=== PATIENT | female | born 1970 | race Caucasian/White ===

== ENCOUNTER → 2021-02-13 14:49 | Outpatient (CLI) | payer BC, SELFPAY ==
--- NOTE | 2021-02-13 14:53 | US_ITS ---
PROCEDURE INFORMATION: Exam: US Right Breast, Complete Exam date and time: 02/13/2021 2:53 PM Age: 50 years old Clinical indication: Screening after trauma TECHNIQUE: Imaging protocol: Complete ultrasound of all four quadrants of the Right breast and the retroareolar regions, including ultrasound of the axilla when performed. COMPARISON: MG MM DIG SCREENING MAMM BI W/CAD 02/13/2021 2:56 PM FINDINGS: Breast: Sonographic images of the right breast including the retroareolar region, all 4 quadrants and the axilla do not demonstrate any solid or cystic masses. No architectural distortion or acoustical shadowing. No skin thickening or axillary adenopathy. IMPRESSION: No sonographic evidence of malignancy. Annual mammographic screening is recommended unless otherwise clinically indicated. ASSESSMENT: BI-RADS Category 1: Negative
--- NOTE | 2021-02-13 14:53 | US_ITS ---
PROCEDURE INFORMATION: Exam: US Left Breast, Complete Exam date and time: 02/13/2021 2:53 PM Age: 50 years old Clinical indication: Screening after trauma TECHNIQUE: Imaging protocol: Complete ultrasound of all four quadrants of the Left breast and the retroareolar regions, including ultrasound of the axilla when performed. COMPARISON: MG MM DIG SCREENING MAMM BI W/CAD 02/13/2021 2:56 PM FINDINGS: Breast: Sonographic images of the left breast including the retroareolar region, all 4 quadrants and the axilla do not demonstrate any solid or cystic masses. Cursors were placed over normal retroareolar ducts. No architectural distortion or acoustical shadowing. No skin thickening or axillary adenopathy. IMPRESSION: No sonographic evidence of malignancy. Annual mammographic screening is recommended unless otherwise clinically indicated. ASSESSMENT: BI-RADS Category 1: Negative
--- NOTE | 2021-02-13 14:53 | MM_ITS ---
PROCEDURE INFORMATION: Exam: MG Bilateral Screening 3D Mammography Exam date and time: 02/13/2021 2:53 PM Age: 50 years old Clinical indication: Screening mammogram TECHNIQUE: Imaging protocol: Bilateral Screening tomosynthesis and 2D mammography including computer-aided detection (CAD) when performed. COMPARISON: MG MM MAMMO DIGITAL DIAGNOSTIC W CAD BILAT 01/16/2017 9:00 AM FINDINGS: MAMMOGRAPHY: Breast composition: There are scattered areas of fibroglandular density. Mass: None. Architectural distortion: No new or suspicious architectural distortion. Calcifications: No new or suspicious calcifications are present Asymmetric density: No new or suspicious asymmetric density is present Skin thickening: None. Axillary adenopathy: None. IMPRESSION: No mammographic evidence of malignancy. Recommend annual screening mammography unless otherwise clinically indicated. ASSESSMENT: BI-RADS category 1: Negative
== END ==
PROVIDERS: PCP Family Medicine; Visit Provider Family Medicine
DX: Z12.31 Encounter for screening mammogram for malignant neoplasm of breast (principal); Z87.828 Personal history of other (healed) physical injury and trauma
CPT/HCPCS: 76641; 77063; 77067

== ENCOUNTER 2021-06-06 14:00 | Inpatient (IN) | payer BC, SELFPAY ==
[2021-06-06] VITALS (7 sets, daily range): BP systolic 115–130; BP diastolic 53–81; PULSE 68–83; RESP 15–20; TEMP 36.6–38.2; O2SAT 93–98; BMI 33.3; BMI 32.3; BMI 33.1
--- NOTE | 2021-06-06 15:53 | PC.NURSE ---
notified Dr. Christopher of consult on pt per ER MD request
--- NOTE | 2021-06-06 16:03 | PC.NURSE ---
Dr Christopher at bedside
--- NOTE | 2021-06-06 16:08 | PC.NURSE ---
accompanied dr. christopher to BS to examine pt. Dr. Christopher stated to pt that she needs to be admitted for IV antibiotics and he will plan to take to OR in the morning for I&D. Dr. Christopher notified ER MD of his plan.
[2021-06-06 16:10] LABS: Microscopic, Urine URINE MICROSCOPIC (MICROSCOPIC)
--- NOTE | 2021-06-06 16:14 | HMH.GSCON ---
*Admission Date: 06/06/21 *Reason for consult:: Perirectal abscess *History of present illness: Patient is a 50-year-old female from [facility]. She has a history of previous perirectal abscess on the right which was managed nonoperatively with antibiotics beginning June 2020. She Had been in her usual state of health until she had recurrent symptoms. She describes swelling and tenderness in the perirectal location. This started about 6 or 7 days ago. She states that she has been treated with outpatient oral antibiotics. However, her symptoms have persisted. She followed up with her primary care provider today and had ongoing symptoms. She was sent for gynecology examination and gynecology felt that this was more of a perirectal abscess apparently. She was sent to the emergency department. Surgery was asked to evaluate the patient in the emergency department. She denies any rectal bleeding. Denies any drainage from this area. Review of Systems - Review of Systems Review of systems:: pertinent systems reviewed and negative unless documented below [facility] History I have reviewed the patient's past medical history: Yes Medical History: Reports:: Hypertension *Have you ever received a pneumonia vaccine?: No *Have you received a flu vaccine this season?: No Other Medical History: Reports: Other Other Surgeries: Yes: Colonoscopy Fractures: Yes - *Social History Smoking Status: Never smoker Alcohol Intake: never Substance Use Type: denies use *Occupational Status:: employed *Travel in the last 8 weeks: None Family Hx:: No significant family history Meds Home Medications Medication Instructions Recorded Confirmed Type Losartan/Hydrochlorothiazide 1 tab PO DAILY 06/06/21 06/06/21 History [Losartan-Hctz 100-12.5 mg Tab] Sulfamethoxazole/Trimethoprim 1 tab PO BID 06/06/21 06/06/21 History [Sulfamethoxazole-Tmp Ds Tablet*] Allergies Allergy/AdvReac Type Severity Reaction Status Date / Time No Known Allergies Allergy Verified 06/06/21 10:17 Exam I & O for Last 24 hours: Intake & Output 06/04/21 06/05/21 06/06/21 06/07/21 11:59 11:59 11:59 11:59 Weight 213 lb - Constitutional no acute distress - *Routine HEENT Exam Head: Present: normocephalic - *Routine Respiratory Exam Absent: accessory muscle use - *Routine Cardiovascular Exam Present: RRR - *Routine Rectal Exam Comments: In the right posterior lateral perirectal location there is some significant induration and edema of the soft tissues. There is some erythema. Centrally in the right posterior lateral location there is an area of central fluctuance without drainage. This is tender. Results - Labs 06/06/21 16:40 06/06/21 16:40 Assessment and Plan - Assessment and plan all Dx Assessment and Plan for all problems:: Patient has evidence of perirectal abscess with surrounding soft tissue infection. I feel the best plan of action would be admission for intravenous antibiotics given failure of outpatient oral antibiotics. Plan for incision and drainage tomorrow morning under anesthesia. Pending the operative findings could require continued inpatient stay for ongoing antibiotics, pain control, and dressing changes. Possible she could develop a fistula given the nature of her condition with recurrent perirectal abscess. At this time I recommend broad-spectrum antibiotic coverage for usual perirectal abscess floor as well as consideration for MRSA coverage as such as Unasyn and vancomycin.
[2021-06-06 16:51] LABS: Coronavirus 19, PCR Not Detected (NotDetected); Influenza A, PCR Not Detected (NotDetected); Influenza B, PCR Not Detected (NotDetected)
[2021-06-06 16:52] LABS: Basophils # 0.1 K/mm3 (0-0.2); Basophils % 0.7 % (0.1-2.0); Eosinophils # 0.2 K/mm3 (0.0-0.4); Eosinophils % 1.2 % (0.1-12.0); Hematocrit 35.3 % (37.0-47.0); Lymphocytes # 1.4 K/mm3 (0.7-4.5); Lymphocytes % 9.3 % (10-50); Mean Corpuscular Hemoglobin 29.9 pg (27.0-31.2); Mean Corpuscular Volume 88.1 fl (81-99); Mean Platelet Volume 8.3 fl (7.4-10.4); Monocytes # 0.9 K/mm3 (0.1-1.0); Monocytes % 5.8 % (1.7-9.3); Neutrophils # 12.3 K/mm3 (1.8-7.8); Neutrophils % 83.1 % (37.0-80.0); Platelet Count 349 K/mm3 (142-424); Red Blood Count 4.01 M/mm3 (4.20-5.40); Red Cell Distribution Width 13.4 % (11.5-17.5); White Blood Count 14.9 K/mm3 (4.8-10.8)
[2021-06-06 16:57] LABS: Appearance,Urine CLEAR (Clear); Bilirubin,Urine Negative (Negative); Blood, Urine TRACE-I (Negative); Color,Urine YELLOW (Yellow); Glucose,Urine (UA) Negative (Negative); Ketones,Urine Negative (Negative); Leukocyte Esterase,Urine Negative (Negative); Nitrate,Urine Negative (Negative); Protein,Urine TRACE (Negative); Specific Gravity, Urine >= 1.030 (1.005-1.030); Urobilinogen,Urine 0.2 EU/dl (0.2)
[2021-06-06 17:09] LABS: Alanine Aminotransferase 37 U/L (12-78); Albumin Level 4.1 g/dl (3.5-5.0); Albumin/Globulin Ratio 1.2 (1.1-1.8); Alkaline Phosphatase 82 U/L (38-126); Anion Gap 13.5 mEq/L (5-15); Aspartate Amino Transferase 42 U/L (14-36); Bilirubin,Total 0.5 mg/dl (0.2-1.3); Blood Urea Nitrogen 15 mg/dl (7-17); Carbon Dioxide 29 mmol/L (22.0-30.0); Chloride 99 mmol/L (98-107); Creatinine Clearance Estimated 128 mL/min (50-200); Estimated Glomerular Filt Rate 76 ml/min (>60); GFR (African American) 92 ML/MIN (>60); Globulin 3.5 g/dL (1.3-3.2); Glucose 122 mg/dl (74-100); Potassium 3.5 mmoL/L (3.5-5.1); Sodium 138 mmol/L (136-145); Total Protein,Serum 7.6 g/dl (6.3-8.2)
[2021-06-06 17:23] LABS: Lactic Acid 2.2 mmol/L (0.7-2.1)
--- NOTE | 2021-06-06 17:37 | HMH.EDGENADL ---
ED Disposition Clinical Impression: Perirectal abscess Disposition: Admitted as Observation Condition on Discharge: Good - Critical Care Critical Care Time: No Attestation: On 06/06/21, the high probability of a clinically significant, sudden or life threatening deterioration of the following system(s) required my full and direct attention, intervention and personal management. The time I documented below is in addition to time spent performing reported procedures but includes the following listed in this critical care notation. Medical Decision Making - [place] Inquiry Pt receiving controlled substance: No Vital Signs: 06/06/21 14:02 06/06/21 17:00 06/06/21 17:30 Temperature 100.8 F H Temperature Source Oral Pulse Rate 83 74 Pulse Rate [Radial] 77 Respiratory Rate 16 15 16 Blood Pressure 119/63 130/59 L Blood Pressure [Right Arm] 119/63 Blood Pressure Mean 81 88 Blood Pressure Mean [Right Arm] 81 Blood Pressure Position [Right Arm] Sitting 02 Sat by Pulse Oximetry 98 97 95 Oxygen Delivery Method Room Air - Lab Data Lab Results 06/06/21 15:55: Urine Color Yellow, Urine Appearance Clear, Urine pH 5.0, Ur Specific [place] >= 1.030, Urine Protein Trace, Urine Glucose (UA) Negative, Urine Ketones Negative, Urine Blood Trace-i, Urine Nitrate Negative, Urine Bilirubin Negative, Urine Urobilinogen 0.2, Ur Leukocyte Esterase Negative, Urine RBC Occasional, Urine WBC None, Ur Squamous Epith Cells Occasional, Other Crystals 2+, Urine Bacteria None 06/06/21 16:40: WBC 14.9 H, RBC 4.01 L, Hgb 12.0 L, Hct 35.3 L, MCV 88.1, MCH 29.9, MCHC 34.0, RDW 13.4, Plt Count 349, MPV 8.3, Neut % (Auto) 83.1 H, Lymph % (Auto) 9.3 L, [place] % (Auto) 5.8, Eos % (Auto) 1.2, Baso % (Auto) 0.7, Neut # (Auto) 12.3 H, Lymph # (Auto) 1.4, [place] # (Auto) 0.9, Eos # (Auto) 0.2, Baso # (Auto) 0.1 06/06/21 16:40: Sodium 138, Potassium 3.5, Chloride 99, Carbon Dioxide 29, Anion Gap 13.5, BUN 15, Creatinine 0.80, Estimated Creat Clear 128, Estimated GFR 76, Est GFR ( Amer) 92, Glucose 122 H, Calcium 9.0, Total Bilirubin 0.5, AST 42 H, ALT 37, Alkaline Phosphatase 82, Total Protein 7.6, Albumin 4.1, Globulin 3.5 H, Albumin/Globulin Ratio 1.2 06/06/21 16:40: Lactate 2.2 H 06/06/21 16:40: SARS-CoV-2 (PCR) Not detected, Influenza A Untype (PCR) Not detected, Influenza Type B (PCR) Not detected Result diagrams: 06/06/21 16:40 06/06/21 16:40 Orders (Tests/Meds): ED MEDICATIONS Generic Name Dose Route Start Last Admin Trade Name Freq PRN Reason Stop Dose Admin Ampicillin Sodium/Sulbactam 100 mls @ 200 mls/hr 06/06/21 17:45 06/06/21 17:49 Sodium 3 gm/ Sodium Chloride IV 06/20/21 17:44 200 mls/hr Q6H IVETTE Administration Miscellaneous 1 each 06/06/21 17:45 Vancomycin Consult Request * 07/06/21 17:44 CONSULT PHARMACY IVETTE Sodium Chloride 10 ml 06/06/21 16:26 Sodium Chloride 0.9% 10ml Flush Syringe IV 07/06/21 16:25 NEEDED PRN Maintain IV Site Vancomycin HCl 2,000 mg 06/06/21 18:04 Vancomycin 1000mg Vial IV 06/06/21 18:05 ONCE ONE Vancomycin HCl 2,000 mg 06/06/21 18:11 Vancomycin 1000mg Vial IV 06/06/21 18:12 ONCE ONE Discontinued Medications Generic Name Dose Route Start Last Admin Trade Name Freq PRN Reason Stop Dose Admin Acetaminophen 1,000 mg 06/06/21 17:06 06/06/21 17:07 Acetaminophen 500mg Tab PO 06/06/21 17:07 1,000 mg ONCE ONE Administration Ertapenem 1 gm/ Sodium 50 mls @ 100 mls/hr 06/06/21 17:30 06/06/21 17:56 Chloride IV 06/20/21 17:29 Not Given Q24H IVETTE Vancomycin HCl 2,000 mg 06/06/21 17:46 Vancomycin 1000mg Vial IV 06/06/21 17:47 ONCE ONE ORDERS Category Date Time Status Surgery Consult (on-call) [Consult to On-Call Gen'l Cons 06/06/21 15:53 Ordered Surgeon] [CONS] Stat Blood Culture Stat Micro 06/06/21 16:40 Received - Physician Consults Physician Consulted: Candi Time: 16:10 Reason
--- NOTE | 2021-06-06 17:42 | PC.NURSE ---
[facility] spoken with for vancomycin dosing. States to do Vancomycin 2grams per IV once for first dose and then have MD place orders for admission as continued consult dosing and he states he will look at it later this evening and get continued dosing for pt.
--- NOTE | 2021-06-06 17:45 | PC.NURSE ---
has bee paged
[2021-06-06 18:08] LABS: RBC,Urine Occasional #/hpf (0-3); Squamous Epithelial Cell,Urine Occasional #/hpf (0-5)
--- NOTE | 2021-06-06 18:09 | PC.NURSE ---
AIDA VAUGHN speaking with Dr. Hay who is cash on delivery clerk for Dr. Cho
[2021-06-06 18:10] LABS: Other Crystals,Urine 2+ /lpf
--- NOTE | 2021-06-06 18:12 | PC.NURSE ---
wash house supervisor has been called for a room; will call back
--- NOTE | 2021-06-06 19:16 | PC.NURSE ---
report called to floor
--- NOTE | 2021-06-06 19:17 | HMH.HP ---
*Admission Date: 06/06/21 *Chief complaint: perirectal abcess *History of present illness: Pt is a 50 yo female, presented to [facility] office with martín-rectal abcess. This has been a recurrent issue for her, and was increasing in severity. Initially seen by Dr Beckham for incision, subsequently taken to ER and Dr Christopher saw her there. In the right posterior lateral perirectal location there is some significant induration and edema of the soft tissues. There is some erythema. Centrally in the right posterior lateral location there is an area of central fluctuance without drainage. She is slated for incision and drainage under anesthesia tomorrow. [facility] History Medical History: Reports:: Hypertension *Have you ever received a pneumonia vaccine?: No *Have you received a flu vaccine this season?: No Other Medical History: Reports: Other Other Surgeries: Yes: Colonoscopy Fractures: Yes - *Social History Smoking Status: Never smoker Alcohol Intake: never Substance Use Type: denies use *Occupational Status:: employed *Travel in the last 8 weeks: None Family Hx:: No significant family history Review of Systems - Constitutional Reports lack of energy - Eyes Denies change in vision - ENT Denies abnormal hearing - *Cardiovascular Denies chest pain - *Respiratory Denies chest congestion - *Gastrointestinal Denies abdominal pain - *Genitourinary Denies difficulty urinating - *Musculoskeletal Denies abnormal walking - Integumentary/Breasts Denies yellowing of the skin - *Neurologic Denies abnormal walking - Psychiatric Reports anxiety - Endocrine Denies cold intolerance - Hematologic/Lymphatic Denies easy bleeding - Allergic/Immunologic Denies wheezing Meds Home Medications Medication Instructions Recorded Confirmed Type Losartan/Hydrochlorothiazide 1 tab PO DAILY 06/06/21 06/06/21 History [Losartan-Hctz 100-12.5 mg Tab] Sulfamethoxazole/Trimethoprim 1 tab PO BID 06/06/21 06/06/21 History [Sulfamethoxazole-Tmp Ds Tablet*] Allergies Allergy/AdvReac Type Severity Reaction Status Date / Time No Known Allergies Allergy Verified 06/06/21 10:17 Exam Vital signs and Labs for Last 24 Hours: Temp Pulse Resp BP Pulse Ox 100.8 F H 68 16 118/66 95 06/06/21 14:02 06/06/21 18:30 06/06/21 18:30 06/06/21 18:30 06/06/21 18:30 Laboratory Results - last 24 hr 06/06/21 15:55: Urine Color Yellow, Urine Appearance Clear, Urine pH 5.0, Ur Specific [place] >= 1.030, Urine Protein Trace, Urine Glucose (UA) Negative, Urine Ketones Negative, Urine Blood Trace-i, Urine Nitrate Negative, Urine Bilirubin Negative, Urine Urobilinogen 0.2, Ur Leukocyte Esterase Negative, Urine RBC Occasional, Urine WBC None, Ur Squamous Epith Cells Occasional, Other Crystals 2+, Urine Bacteria None 06/06/21 16:40: WBC 14.9 H, RBC 4.01 L, Hgb 12.0 L, Hct 35.3 L, MCV 88.1, MCH 29.9, MCHC 34.0, RDW 13.4, Plt Count 349, MPV 8.3, Neut % (Auto) 83.1 H, Lymph % (Auto) 9.3 L, [place] % (Auto) 5.8, Eos % (Auto) 1.2, Baso % (Auto) 0.7, Neut # (Auto) 12.3 H, Lymph # (Auto) 1.4, [place] # (Auto) 0.9, Eos # (Auto) 0.2, Baso # (Auto) 0.1 06/06/21 16:40: Sodium 138, Potassium 3.5, Chloride 99, Carbon Dioxide 29, Anion Gap 13.5, BUN 15, Creatinine 0.80, Estimated Creat Clear 128, Estimated GFR 76, Est GFR ( Amer) 92, Glucose 122 H, Calcium 9.0, Total Bilirubin 0.5, AST 42 H, ALT 37, Alkaline Phosphatase 82, Total Protein 7.6, Albumin 4.1, Globulin 3.5 H, Albumin/Globulin Ratio 1.2 06/06/21 16:40: Lactate 2.2 H 06/06/21 16:40: SARS-CoV-2 (PCR) Not detected, Influenza A Untype (PCR) Not detected, Influenza Type B (PCR) Not detected I & O for Last 24 hours: Intake & Output 06/03/21 06/04/21 06/05/21 06/06/21 23:59 23:59 23:59 23:59 Weight 213 lb - Constitutional no acute distress - *Routine HEENT Exam Head: Present: normocephalic Eye: Present: EOMI, PERRL ENT: Present: mucous membranes moist - *Routine Neck Ex
--- NOTE | 2021-06-06 19:19 | PC.NURSE ---
PT ARRIVED TO FLOOR VIA W/C FROM ED W/STAFF @ 191
--- NOTE | 2021-06-06 19:21 | PC.NURSE ---
report called to floor
[2021-06-06 20:57] LABS: Reflex Lactic Add Lactic Reflex
[2021-06-06 21:51] LABS: Lactic Acid Follow Up (RFLX 1) 0.8 mmol/L (0.7-2.1)
--- NOTE | 2021-06-06 22:33 | PC.WOUNDNOTE ---
Abscess noted to right gluteal cheek
[2021-06-07] VITALS (19 sets, daily range): BP systolic 102–146; BP diastolic 51–69; PULSE 60–89; RESP 12–20; TEMP 36.2–37; O2SAT 93–98; BMI 33.1
--- NOTE | 2021-06-07 04:46 | PC.NURSE ---
Patient has rested on and off tonight and requiring only 1 dose of morphine with favorable results. No complaints have been voiced to this RN.
--- NOTE | 2021-06-07 08:41 | HMH.OPNOTE ---
Date of procedure: 06/07/21 Pre-op Diagnosis:: Perirectal abscess Post-op Diagnosis:: Same Procedure performed:: Incision and drainage of complex right posterior lateral perirectal abscess Surgeon:: Luis Christopher MD PROOFSHEET CORRECTOR:: Jorje Hart Anesthesia: LMA Estimated blood loss (mL): 15 Clinical Note:: Patient is a 50-year-old female from [facility]. She has a history of previous perirectal abscess on the right which was managed nonoperatively with antibiotics beginning June 2020. She Had been in her usual state of health until she had recurrent symptoms beginning about 1 week prior to admission. She describes swelling and tenderness in the perirectal location. She states that she has been treated with outpatient oral antibiotics. However, her symptoms have persisted. She followed up with her primary care provider on 06/06/2021. She was sent for gynecology examination and gynecology felt that this was more of a perirectal abscess apparently. She was sent to the emergency department. Surgery was asked to evaluate the patient in the emergency department. She denies any rectal bleeding. Denies any drainage from this area. Patient was found to have an appreciable right posterior lateral perirectal abscess. Recommendations for admission for antibiotics and pain control with planned incision and drainage the following day were made. Of note, she had a temperature of 100.8. White blood cell count was 14,900. Operative findings:: Right posterior lateral perirectal abscess, infra levator Operative note:: Patient was taken to the operating room. She was positioned in supine position. General anesthesia was induced via LMA. She was then positioned in modified lithotomy position. Area was prepped and draped in the standard surgical fashion. In the right posterior lateral location there is an area of appreciable fluctuance. There was some surrounding edema and induration. Limited incision was made overlying the area of greatest fluctuance. There was a large amount of pus which exuded from the wound. This was sent for culture. The incision was extended somewhat and made into a cruciate type incision to allow drainage. Wound was probed to break up any loculations. This was an infralevator abscess. Irrigation was performed of the abscess cavity. Limited use of electrocautery was used for decent hemostasis. Local anesthetic was infiltrated. The wound was packed with a saline moistened Kerlix gauze and covered with clean dry sterile dressing. Condition: stable Disposition: PACU Specimens:: Cultures Complications:: None immediately apparent
--- NOTE | 2021-06-07 08:50 | P.PN_ITS ---
[facility] Anesthesia Checklist - Structural Data Admitted From: Inpatient Planned Operative Procedure/s: i/d perirectal abcess Consent for Planned Operative Procedure(s) Verified: Yes - Airway Assessment C-Spine Mobility Assessed: Yes TMJ Mobility Assessed: Yes Dentition: Poor Dentition - Neurological Assessment Level of Consciousness: Awake, Alert, Appropriate - Anesthesia Plan Anesthesia Risk discussed: Yes Anesthesia Plan: Verified ASA Class: II Anesthesia Type: General [facility] History I have reviewed the patient's past medical history: Yes Medical History: Reports:: Hypertension *Have you ever received a pneumonia vaccine?: No *Have you received a flu vaccine this season?: No Other Medical History: Reports: Other Anesthesia experience/problems:: none Other Surgeries: Yes: Colonoscopy Fractures: Yes - *Social History Smoking Status: Never smoker Alcohol Intake: never Substance Use Type: denies use *Occupational Status:: employed *Travel in the last 8 weeks: None Family Hx:: Cancer, Diabetes, Heart Attack
--- NOTE | 2021-06-07 08:51 | HMH.ANESI ---
[facility] Anesthesia Record Part I Intake, IV Amount: 800 Estimated blood loss (mL): 20 Urine output (mL): 0 Blood Pressure: 139/59 SaO2: 94 Pulse Rate: 89 Respiratory Rate: 12 Temperature: 97.6 F Patient is:: Awake, Stable Stable to PACU at:: 08:45
--- NOTE | 2021-06-07 09:36 | SUR.PHASEI ---
0910 Called and provided detailed report to kobe Ricci/surgical scrub technician 0915 Pt transported via bed to med/surg room. Vital signs stable. Denies any pain. pt left in stable condition with kobe Ricci/surgical scrub technician at bedside.
--- NOTE | 2021-06-07 10:03 | HMH.ACPN2 ---
Internal Medicine - PN: Subj *Date: 06/08/21 *Time: 01:50 Interval history: doing better - procedure per dr renteria Exam Vital signs and Labs for Last 24 Hours: Temp Pulse Resp BP Pulse Ox 97.2 F L 63 13 124/62 93 L 06/07/21 09:15 06/07/21 09:15 06/07/21 09:15 06/07/21 09:15 06/07/21 09:15 Laboratory Results - last 24 hr 06/06/21 15:55: Urine Color Yellow, Urine Appearance Clear, Urine pH 5.0, Ur Specific [place] >= 1.030, Urine Protein Trace, Urine Glucose (UA) Negative, Urine Ketones Negative, Urine Blood Trace-i, Urine Nitrate Negative, Urine Bilirubin Negative, Urine Urobilinogen 0.2, Ur Leukocyte Esterase Negative, Urine RBC Occasional, Urine WBC None, Ur Squamous Epith Cells Occasional, Other Crystals 2+, Urine Bacteria None 06/06/21 16:40: WBC 14.9 H, RBC 4.01 L, Hgb 12.0 L, Hct 35.3 L, MCV 88.1, MCH 29.9, MCHC 34.0, RDW 13.4, Plt Count 349, MPV 8.3, Neut % (Auto) 83.1 H, Lymph % (Auto) 9.3 L, [place] % (Auto) 5.8, Eos % (Auto) 1.2, Baso % (Auto) 0.7, Neut # (Auto) 12.3 H, Lymph # (Auto) 1.4, [place] # (Auto) 0.9, Eos # (Auto) 0.2, Baso # (Auto) 0.1 06/06/21 16:40: Sodium 138, Potassium 3.5, Chloride 99, Carbon Dioxide 29, Anion Gap 13.5, BUN 15, Creatinine 0.80, Estimated Creat Clear 128, Estimated GFR 76, Est GFR ( Amer) 92, Glucose 122 H, Calcium 9.0, Total Bilirubin 0.5, AST 42 H, ALT 37, Alkaline Phosphatase 82, Total Protein 7.6, Albumin 4.1, Globulin 3.5 H, Albumin/Globulin Ratio 1.2 06/06/21 16:40: Lactate 2.2 H 06/06/21 16:40: SARS-CoV-2 (PCR) Not detected, Influenza A Untype (PCR) Not detected, Influenza Type B (PCR) Not detected 06/06/21 21:18: Lactate 0.8 I & O for Last 24 hours: Intake & Output 06/04/21 06/05/21 06/06/21 06/07/21 11:59 11:59 11:59 11:59 Intake Total 1564 / 1564 Balance 1564 / 1564 Weight 218 lb 8.002 oz - Constitutional no acute distress, obese - *Routine HEENT Exam Head: Present: normocephalic Eye: Present: EOMI, PERRL ENT: Present: mucous membranes dry - *Routine Neck Exam Absent: JVD - *Routine Respiratory Exam Present: CTA bilaterally - *Routine Cardiovascular Exam Present: RRR, murmur - *Routine Abdominal Exam Present: soft - *Routine Extremities Exam Absent: calf tenderness - *Routine Skin Exam Present: intact - *Routine Neurological Exam Present: alert, CN II-XII intact - Routine Psychiatric Exam Present: normal affect Assessment and Plan (1) Obesity (BMI 30-39.9) Status: Acute Category: Medical Code(s): E66.9 - Obesity, unspecified (2) Perirectal abscess Status: Acute Category: Medical Code(s): K61.1 - Rectal abscess (3) Essential hypertension Status: Acute Category: Medical Code(s): I10 - Essential (primary) hypertension (4) Severe sepsis with acute organ dysfunction Status: Acute Category: Medical Code(s): A41.9 - Sepsis, unspecified organism; R65.20 - Severe sepsis without septic shock
--- NOTE | 2021-06-07 13:31 | P.CONPHA_ITS ---
[facility] Pharmacy VTE Monitoring - Patient Demographics Admission date: 06/07/21 Report Date: 06/07/21 Time: 13:31 Allergies/Adverse Reactions: Patient Allergies No Known Allergies Allergy (Verified 06/06/21 10:17) Height: 1.73 m Weight: 99.11 kg Patient Problems: Current Active Problems Perirectal abscess (Acute) - VTE Risk Labs: VTE Related Lab Results Hgb 12.0 g/dL (12.2-16.2) L 06/06/21 16:40 Hct 35.3 % (37.0-47.0) L 06/06/21 16:40 Plt Count 349 K/mm3 (142-424) 06/06/21 16:40 BUN 15 mg/dl (7-17) 06/06/21 16:40 Creatinine 0.80 mg/dl (0.52-1.04) 06/06/21 16:40 Estimated Creat Clear 128 mL/min (50-200) 06/06/21 16:40 VTE Score: 3 VTE Risk Level: Low Risk - Prophylaxis Types of VTE Prophylaxis: TEDS Knee High Location of Applied Device: Bilateral Lower Extremeties ([place] HOSE ORDERED)
--- NOTE | 2021-06-07 13:32 | P.CONPHA_ITS ---
- Pharmacy Consult Date: 06/07/21 Time: 13:32 Referring provider: DR. MUNOZ Reason for Consult:: VANCOMYCIN DOSING Allergies and ADEs:: Allergies Allergy/AdvReac Type Severity Reaction Status Date / Time No Known Allergies Allergy Verified 06/06/21 10:17 Home Medications:: Home Medications Medication Instructions Recorded Confirmed Type Losartan/Hydrochlorothiazide 1 tab PO DAILY 06/06/21 06/06/21 History [Losartan-Hctz 100-12.5 mg Tab] Sulfamethoxazole/Trimethoprim 1 tab PO BID 06/06/21 06/06/21 History [Sulfamethoxazole-Tmp Ds Tablet*] Height: 1.73 m Weight: 99.11 kg Laboratory Results:: Laboratory Results - last 24 hr 06/06/21 15:55: Urine Color Yellow, Urine Appearance Clear, Urine pH 5.0, Ur Specific [place] >= 1.030, Urine Protein Trace, Urine Glucose (UA) Negative, Urine Ketones Negative, Urine Blood Trace-i, Urine Nitrate Negative, Urine Bilirubin Negative, Urine Urobilinogen 0.2, Ur Leukocyte Esterase Negative, Urine RBC Occasional, Urine WBC None, Ur Squamous Epith Cells Occasional, Other Crystals 2+, Urine Bacteria None 06/06/21 16:40: WBC 14.9 H, RBC 4.01 L, Hgb 12.0 L, Hct 35.3 L, MCV 88.1, MCH 29.9, MCHC 34.0, RDW 13.4, Plt Count 349, MPV 8.3, Neut % (Auto) 83.1 H, Lymph % (Auto) 9.3 L, [place] % (Auto) 5.8, Eos % (Auto) 1.2, Baso % (Auto) 0.7, Neut # (Auto) 12.3 H, Lymph # (Auto) 1.4, [place] # (Auto) 0.9, Eos # (Auto) 0.2, Baso # (Auto) 0.1 06/06/21 16:40: Sodium 138, Potassium 3.5, Chloride 99, Carbon Dioxide 29, Anion Gap 13.5, BUN 15, Creatinine 0.80, Estimated Creat Clear 128, Estimated GFR 76, Est GFR ( Amer) 92, Glucose 122 H, Calcium 9.0, Total Bilirubin 0.5, AST 42 H, ALT 37, Alkaline Phosphatase 82, Total Protein 7.6, Albumin 4.1, Globulin 3.5 H, Albumin/Globulin Ratio 1.2 06/06/21 16:40: Lactate 2.2 H 06/06/21 16:40: SARS-CoV-2 (PCR) Not detected, Influenza A Untype (PCR) Not detected, Influenza Type B (PCR) Not detected 06/06/21 21:18: Lactate 0.8 Medical History: Reports:: Hypertension Assessment and Plan - Assessment and plan all Dx Assessment and Plan for all problems:: Age: 50 yo Serum creatinine: 0.8 mg/dL Height: 68.1 Inches Weight (kg): 99 Assessment: IBW (kg): 64.13 Dosing wt(kg): 99 Estimated Creatinine clearance (ml/min): 85.2 CRCL method: Cockcroft and Gault using ibw(default). Drug selected: Vancomycin Loading dose (mg): 0 Vd (liters): 79.2 (factor used: 0.8 L/kg) Song (hr-1): 0.075 Half life (hrs): 9.24 Recommended dose: 1750 mg Interval: 12 hrs Infusion time (hrs): 2.0 Predicted peak (mcg/mL): 34.6 Predicted trough (mcg/mL): 16.34 Total body weight is being used for vancomycin dosing. Recommendations: Give Vancomycin 1750 mg q 12 hrs with an expected Cpeak of 34.6 mcg/ml and an expected Ctrough of 16.34 mcg/ml. ----Vanco only - ignore for aminoglycosides----- CLvanco= 5.94 L/hr AUC 0-24 /LESLIE Data: LESLIE 0.5 mcg/mL: AUC/LESLIE: 1178.5 LESLIE 1.0 mcg/mL: AUC/LESLIE: 589.2 --------- LESLIE 1.5 mcg/mL: AUC/LESLIE: 392.8 LESLIE 2.0 mcg/mL: AUC/LESLEI: 294.6 Thank you for the consult, will continue to follow.
--- NOTE | 2021-06-07 16:00 | PC.NURSE ---
pt is aox4, able to make needs known to staff, dsg changed per order. medicated before but pt still rated pain 10/10 during packing. tolerating diet well. no co,plaints
[2021-06-07 16:40] LABS: Vancomycin,Peak 17.7 ug/ml (11-39)
[2021-06-08 05:00] VITALS: BMI 34.0
[2021-06-08 07:50] VITALS: O2SAT 97
[2021-06-08 08:00] VITALS: BP 121/52; PULSE 64; RESP 17; TEMP 36.4; O2SAT 98
[2021-06-08 08:57] LABS: Basophils % 0.2 % (0.1-2.0); Eosinophils % 0.3 % (0.1-12.0); Hematocrit 33.7 % (37.0-47.0); Hemoglobin 11.4 g/dL (12.2-16.2); Lymphocytes # 1.4 K/mm3 (0.7-4.5); Lymphocytes % 9.9 % (10-50); Mean Corpuscular HGB Conc 33.8 g/dL (31.8-35.4); Mean Corpuscular Hemoglobin 29.6 pg (27.0-31.2); Mean Corpuscular Volume 87.5 fl (81-99); Mean Platelet Volume 8.1 fl (7.4-10.4); Monocytes # 0.5 K/mm3 (0.1-1.0); Monocytes % 3.7 % (1.7-9.3); Neutrophils % 85.9 % (37.0-80.0); Platelet Count 410 K/mm3 (142-424); Red Blood Count 3.85 M/mm3 (4.20-5.40); Red Cell Distribution Width 12.6 % (11.5-17.5)
[2021-06-08 09:01] LABS: Chloride 105 mmol/L (98-107); Potassium 3.8 mmoL/L (3.5-5.1); Sodium 141 mmol/L (136-145)
[2021-06-08 09:04] LABS: Anion Gap 8.8 mEq/L (5-15); Blood Urea Nitrogen 13 mg/dl (7-17); Calcium 9.2 mg/dl (8.4-10.2); Carbon Dioxide 31 mmol/L (22.0-30.0); Creatinine Clearance Estimated 180 mL/min (50-200); Estimated Glomerular Filt Rate 106 ml/min (>60); GFR (African American) 128 ML/MIN (>60); Glucose 166 mg/dl (74-100)
[2021-06-08 09:07] LABS: MANUAL DIFFERENTIAL MANUAL DIFFERENTIAL (MANUAL DIFF)
[2021-06-08 09:16] LABS: Vancomycin,Trough 11.6 ug/mL (5.0-10.0)
--- NOTE | 2021-06-08 09:46 | HMH.GSPN ---
Subjective Narrative: Patient states that her affected area feels better. She has undergone dressing change. Progress Note: A&P (1) Obesity (BMI 30-39.9) Status: Acute (2) Perirectal abscess Status: Acute (3) Essential hypertension Status: Acute (4) Severe sepsis with acute organ dysfunction Status: Acute Assessment and Plan for All Diagnoses:: Patient had quite significant pain with dressing change. Continue current wound care. Recommend remain inpatient for IV antibiotics and pain control. Exam Vital signs and Labs for Last 24 Hours: Temp Pulse Resp BP Pulse Ox 97.6 F 64 17 121/52 L 98 06/08/21 08:00 06/08/21 08:00 06/08/21 08:00 06/08/21 08:00 06/08/21 08:00 Laboratory Results - last 24 hr 06/07/21 15:45: Vancomycin Peak 17.7 06/08/21 08:10: Sodium 141, Potassium 3.8, Chloride 105, Carbon Dioxide 31 H, Anion Gap 8.8, BUN 13, Creatinine 0.60 D, Estimated Creat Clear 180, Estimated GFR 106, Est GFR ( Amer) 128 D, Glucose 166 H, Calcium 9.2 06/08/21 08:10: Vancomycin Trough 11.6 H 06/08/21 08:10: WBC 14.0 H, RBC 3.85 L, Hgb 11.4 L, Hct 33.7 L, MCV 87.5, MCH 29.6, MCHC 33.8, RDW 12.6, Plt Count 410, MPV 8.1, Neut % (Auto) 85.9 H, Lymph % (Auto) 9.9 L, [place] % (Auto) 3.7, Eos % (Auto) 0.3, Baso % (Auto) 0.2, Neut # (Auto) 12.0 H, Lymph # (Auto) 1.4, [place] # (Auto) 0.5, Eos # (Auto) 0.0, Baso # (Auto) 0.0 I & O for Last 24 hours: Intake & Output 06/05/21 06/06/21 06/07/21 06/08/21 11:59 11:59 11:59 11:59 Intake Total 1564 / 1564 1562 / 1562 Output Total 75 / 75 Balance 1564 / 1564 1487 / 1487 Weight 218 lb 8.002 oz 224 lb 3.2 oz Microbiology Reports for the Last 24 Hours: Microbiology 06/07/21 08:29 Rectum Gram Stain - Final 06/07/21 08:29 Rectum Abscess Culture - Preliminary Narrative: Wound appears relatively clean. There is no appreciable cellulitis. She does have some significant induration.
--- NOTE | 2021-06-08 09:48 | PC.NURSE ---
dsg change performed dr renteria assisted by this rn
[2021-06-08 09:55] LABS: Lymphocytes % 7 % (10-50); Neutrophils % 93 % (42-76); Total Cells Counted 100
[2021-06-08 09:56] LABS: Platelet Estimate Normal; RBC Morphology Normal
--- NOTE | 2021-06-08 11:05 | HMH.ACPN2 ---
Internal Medicine - PN: Subj *Date: 06/09/21 *Time: 06:53 Interval history: doing better but has sig pain - surg note reviewed Exam Vital signs and Labs for Last 24 Hours: Temp Pulse Resp BP Pulse Ox 97.6 F 64 17 121/52 L 98 06/08/21 08:00 06/08/21 08:00 06/08/21 08:00 06/08/21 08:00 06/08/21 08:00 Laboratory Results - last 24 hr 06/07/21 15:45: Vancomycin Peak 17.7 06/08/21 08:10: Sodium 141, Potassium 3.8, Chloride 105, Carbon Dioxide 31 H, Anion Gap 8.8, BUN 13, Creatinine 0.60 D, Estimated Creat Clear 180, Estimated GFR 106, Est GFR ( Amer) 128 D, Glucose 166 H, Calcium 9.2 06/08/21 08:10: Vancomycin Trough 11.6 H 06/08/21 08:10: WBC 14.0 H, RBC 3.85 L, Hgb 11.4 L, Hct 33.7 L, MCV 87.5, MCH 29.6, MCHC 33.8, RDW 12.6, Plt Count 410, MPV 8.1, Neut % (Auto) 85.9 H, Lymph % (Auto) 9.9 L, [place] % (Auto) 3.7, Eos % (Auto) 0.3, Baso % (Auto) 0.2, Neut # (Auto) 12.0 H, Lymph # (Auto) 1.4, [place] # (Auto) 0.5, Eos # (Auto) 0.0, Baso # (Auto) 0.0, Total Counted 100, Neutrophils % (Manual) 93 H, Lymphocytes % (Manual) 7 L, Platelet Estimate Normal, RBC Morphology Normal I & O for Last 24 hours: Intake & Output 06/05/21 06/06/21 06/07/21 06/08/21 11:59 11:59 11:59 11:59 Intake Total 1564 / 1564 1562 / 1562 Output Total 75 / 75 Balance 1564 / 1564 1487 / 1487 Weight 218 lb 8.002 oz 224 lb 3.2 oz Microbiology Reports for the Last 24 Hours: Microbiology 06/07/21 08:29 Rectum Gram Stain - Final 06/07/21 08:29 Rectum Abscess Culture - Preliminary - Constitutional no acute distress - *Routine HEENT Exam Head: Present: normocephalic Eye: Present: EOMI, PERRL ENT: Present: mucous membranes dry - *Routine Neck Exam Absent: JVD - *Routine Respiratory Exam Present: CTA bilaterally - *Routine Cardiovascular Exam Present: RRR - *Routine Abdominal Exam Present: soft - *Routine Extremities Exam Absent: edema - *Routine Skin Exam Present: intact - *Routine Neurological Exam Present: alert, CN II-XII intact - Routine Psychiatric Exam Present: normal affect Assessment and Plan (1) Obesity (BMI 30-39.9) Status: Acute Category: Medical Code(s): E66.9 - Obesity, unspecified (2) Perirectal abscess Status: Acute Category: Medical Code(s): K61.1 - Rectal abscess (3) Essential hypertension Status: Acute Category: Medical Code(s): I10 - Essential (primary) hypertension (4) Severe sepsis with acute organ dysfunction Status: Acute Category: Medical Code(s): A41.9 - Sepsis, unspecified organism; R65.20 - Severe sepsis without septic shock
--- NOTE | 2021-06-08 12:55 | HMH.PHACONS ---
- Pharmacy Consult Date: 06/08/21 Time: 12:55 Referring provider: DR. GOODRICH Reason for Consult:: VANCOMYCIN LEVEL Allergies and ADEs:: Allergies Allergy/AdvReac Type Severity Reaction Status Date / Time No Known Allergies Allergy Verified 06/06/21 10:17 Home Medications:: Home Medications Medication Instructions Recorded Confirmed Type Losartan/Hydrochlorothiazide 1 tab PO DAILY 06/06/21 06/06/21 History [Losartan-Hctz 100-12.5 mg Tab] Sulfamethoxazole/Trimethoprim 1 tab PO BID 06/06/21 06/06/21 History [Sulfamethoxazole-Tmp Ds Tablet*] Height: 1.73 m Weight: 101.695 kg Laboratory Results:: Laboratory Results - last 24 hr 06/07/21 15:45: Vancomycin Peak 17.7 06/08/21 08:10: Sodium 141, Potassium 3.8, Chloride 105, Carbon Dioxide 31 H, Anion Gap 8.8, BUN 13, Creatinine 0.60 D, Estimated Creat Clear 180, Estimated GFR 106, Est GFR ( Amer) 128 D, Glucose 166 H, Calcium 9.2 06/08/21 08:10: Vancomycin Trough 11.6 H 06/08/21 08:10: WBC 14.0 H, RBC 3.85 L, Hgb 11.4 L, Hct 33.7 L, MCV 87.5, MCH 29.6, MCHC 33.8, RDW 12.6, Plt Count 410, MPV 8.1, Neut % (Auto) 85.9 H, Lymph % (Auto) 9.9 L, [place] % (Auto) 3.7, Eos % (Auto) 0.3, Baso % (Auto) 0.2, Neut # (Auto) 12.0 H, Lymph # (Auto) 1.4, [place] # (Auto) 0.5, Eos # (Auto) 0.0, Baso # (Auto) 0.0, Total Counted 100, Neutrophils % (Manual) 93 H, Lymphocytes % (Manual) 7 L, Platelet Estimate Normal, RBC Morphology Normal Medical History: Reports:: Hypertension Assessment and Plan (1) Obesity (BMI 30-39.9) Status: Acute Category: Medical Code(s): E66.9 - Obesity, unspecified (2) Perirectal abscess Status: Acute Category: Medical Code(s): K61.1 - Rectal abscess (3) Essential hypertension Status: Acute Category: Medical Code(s): I10 - Essential (primary) hypertension (4) Severe sepsis with acute organ dysfunction Status: Acute Category: Medical Code(s): A41.9 - Sepsis, unspecified organism; R65.20 - Severe sepsis without septic shock - Assessment and plan all Dx Assessment and Plan for all problems:: PATIENT'S VANCOMYCIN TROUGH LEVEL WAS 11.6 MCG/ML THIS AM PRIOR TO 4TH DOSE. RECOMMEND CONTINUING WITH VANCOMYCIN 1750 MG Q12H AT THIS TIME.
[2021-06-08 13:23] LABS: Vancomycin,Peak 9.8 ug/ml (11-39)
--- NOTE | 2021-06-08 15:25 | PC.NURSE ---
she is aox4, able to make needs known to staff. has tolerated diet well. has not requested pain medication but was medicated with prn morphine prior to dsg change this am. pt does experience considerable amount of pain with dsg changes. dsg change per order with this am during rounds. she has ambulated in room independently. does not require o2 support.
[2021-06-08 15:45] VITALS: BP 98/51; PULSE 59; RESP 16; TEMP 36.6; O2SAT 97
[2021-06-08 20:00] VITALS: BP 101/56; PULSE 69; RESP 20; TEMP 36.6; O2SAT 99
[2021-06-09 05:00] VITALS: BMI 34.6
--- NOTE | 2021-06-09 06:32 | P.PN_ITS ---
Subjective Narrative: Patient states that she tolerated dressing change last night somewhat better. Progress Note: A&P (1) Obesity (BMI 30-39.9) Status: Acute (2) Perirectal abscess Status: Acute (3) Essential hypertension Status: Acute (4) Severe sepsis with acute organ dysfunction Status: Acute Assessment and Plan for All Diagnoses:: May change to using 1 inch plain gauze (Nu Gauze) dry dressing packing. Discharge planning. Exam Vital signs and Labs for Last 24 Hours: Temp Pulse Resp BP Pulse Ox 97.8 F 69 20 101/56 L 99 06/08/21 20:00 06/08/21 20:00 06/08/21 20:00 06/08/21 20:00 06/08/21 20:00 Laboratory Results - last 24 hr 06/08/21 08:10: Sodium 141, Potassium 3.8, Chloride 105, Carbon Dioxide 31 H, Anion Gap 8.8, BUN 13, Creatinine 0.60 D, Estimated Creat Clear 180, Estimated GFR 106, Est GFR ( Amer) 128 D, Glucose 166 H, Calcium 9.2 06/08/21 08:10: Vancomycin Trough 11.6 H 06/08/21 08:10: WBC 14.0 H, RBC 3.85 L, Hgb 11.4 L, Hct 33.7 L, MCV 87.5, MCH 29.6, MCHC 33.8, RDW 12.6, Plt Count 410, MPV 8.1, Neut % (Auto) 85.9 H, Lymph % (Auto) 9.9 L, [place] % (Auto) 3.7, Eos % (Auto) 0.3, Baso % (Auto) 0.2, Neut # (Auto) 12.0 H, Lymph # (Auto) 1.4, [place] # (Auto) 0.5, Eos # (Auto) 0.0, Baso # (Auto) 0.0, Total Counted 100, Neutrophils % (Manual) 93 H, Lymphocytes % (Manual) 7 L, Platelet Estimate Normal, RBC Morphology Normal 06/08/21 12:39: Vancomycin Peak 9.8 L I & O for Last 24 hours: Intake & Output 06/06/21 06/07/21 06/08/21 06/09/21 11:59 11:59 11:59 11:59 Intake Total 1564 / 1564 1562 / 1562 840 / 840 Output Total 75 / 75 Balance 1564 / 1564 1487 / 1487 840 / 840 Weight 218 lb 8.002 oz 224 lb 3.2 oz 228 lb 11.2 oz Microbiology Reports for the Last 24 Hours: Microbiology 06/06/21 16:40 Blood Blood Culture - Preliminary NO GROWTH AFTER 48 HOURS 06/06/21 16:40 Blood Blood Culture - Preliminary NO GROWTH AFTER 48 HOURS 06/07/21 08:29 Rectum Gram Stain - Final 06/07/21 08:29 Rectum Abscess Culture - Preliminary - Constitutional no acute distress
[2021-06-09 08:00] VITALS: O2SAT 98
[2021-06-09 08:11] VITALS: BP 104/55; PULSE 67; RESP 15; TEMP 36.8; O2SAT 98
--- NOTE | 2021-06-09 08:41 | SW/DCPLANNER ---
The plan for this patient is to return to [facility] outpatient daily for dressing changes. Patient stated that she does NOT want anyone in her household to complete dressing changes and prefers to return to [facility] daily. This patient could potentially discharge later today.
--- NOTE | 2021-06-09 09:09 | HMH.DCSUM ---
General - General Admission date:: 06/06/21 Discharge date: 06/09/21 HPI HPI: Pt is a 50 yo female, presented to [facility] office with martín-rectal abcess. This has been a recurrent issue for her, and was increasing in severity. Initially seen by Dr Beckham for incision, subsequently taken to ER and Dr Christopher saw her there. In the right posterior lateral perirectal location there is some significant induration and edema of the soft tissues. There is some erythema. Centrally in the right posterior lateral location there is an area of central fluctuance without drainage. She is slated for incision and drainage under anesthesia tomorrow. Hospital Course Hospital Course: Abnormal Lab Results 06/08/21 08:10: Vancomycin Trough 11.6 H 06/08/21 08:10: Neutrophils % (Manual) 93 H, Lymphocytes % (Manual) 7 L 06/08/21 12:39: Vancomycin Peak 9.8 L Microbiology 06/06/21 16:40 Blood Blood Culture - Preliminary NO GROWTH AFTER 48 HOURS 06/06/21 16:40 Blood Blood Culture - Preliminary NO GROWTH AFTER 48 HOURS 06/07/21 08:29 Rectum Gram Stain - Final 06/07/21 08:29 Rectum Abscess Culture - Preliminary Discharge Plan (1) Obesity (BMI 30-39.9)-low fat/carb/calorie diet (2) Perirectal abscess- surgery consult- op note: Limited incision was made overlying the area of greatest fluctuance. There was a large amount of pus which exuded from the wound. This was sent for culture. The incision was extended somewhat and made into a cruciate type incision to allow drainage. Wound was probed to break up any loculations. This was an infralevator abscess. Irrigation was performed of the abscess cavity. Limited use of electrocautery was used for decent hemostasis. Local anesthetic was infiltrated. The wound was packed with a saline moistened Kerlix gauze and covered with clean dry sterile dressing. *culture i&D preliminary few gram positive cocci *dressing change bid *oral antibiotics (3) Essential hypertension- stable, continue home meds (4) Severe sepsis with acute organ dysfunction-stable, had I&D and area improved no redness, drainage noted. dc home with above recommendations Objective Vital signs: Temp Pulse Resp BP Pulse Ox 98.3 F 67 15 104/55 L 98 06/09/21 08:11 06/09/21 08:11 06/09/21 08:11 06/09/21 08:11 06/09/21 08:11 no acute distress - *Routine HEENT Exam Head: Present: normocephalic Eye: Present: PERRL ENT: Present: mucous membranes moist - *Routine Neck Exam Present: supple - *Routine Respiratory Exam Present: CTA bilaterally - *Routine Cardiovascular Exam Present: RRR - *Routine Abdominal Exam Present: soft, normoactive bowel sounds. Absent: tenderness - *Routine Extremities Exam Absent: cyanosis, clubbing, edema - *Routine Skin Exam Present: warm, wounds. Absent: rash Comments: inner rt glut, incision slight redness no induration, drainage noted - *Routine Neurological Exam Present: alert, oriented X3 Results Labs on day of discharge: Labs from last 24 hours 06/08/21 06/08/21 06/08/21 12:39 08:10 08:10 Total Counted 100 Neutrophils % (Manual) 93 H Lymphocytes % (Manual) 7 L Platelet Estimate Normal RBC Morphology Normal Vancomycin Peak 9.8 L Vancomycin Trough 11.6 H Preliminary micro results at discharge 06/06/21 16:40 Blood Culture - Preliminary Blood NO GROWTH AFTER 48 HOURS 06/06/21 16:40 Blood Culture - Preliminary Blood NO GROWTH AFTER 48 HOURS 06/07/21 08:29 Abscess Culture - Preliminary Rectum - Additional Comments rounded with dr parmar all orders per dr washburn DS: Diagnosis - Discharge Diagnosis (1) Obesity (BMI 30-39.9) Status: Acute (2) Perirectal abscess Status: Acute (3) Essential hypertension Status: Acute (4) Severe sepsis with acute organ dysfunction Status: Acute Discharge Plan -
--- NOTE | 2021-06-09 09:50 | P.PN_ITS ---
[facility] Anesthesia Record Part II Discharge Time: 09:15 Destination: Medical Surgical Department PACU nurse assessment reviewed?: Yes Patient Condition:: Good Anesthesia Complications:: None Swallowing reflex intact?: Yes Cyanosis?: No Blood Pressure: 124/62 Pulse Rate: 63 Temperature: 97.2 F Mental Status: Alert & Oriented Pain level:: 0 Nausea and/or vomitting:: None Intake, IV Amount: 0
[2021-06-09 09:51] VITALS: BP 124/62; PULSE 63; TEMP 36.2
--- NOTE | 2021-06-09 13:27 | HMH.PHAINT ---
I spoke with the patient today about their medication list. Went over the new medication being sent in for them and the medications she was to continue on at home. When we spoke, there were no questions or concerns. The patient was provided a copy of the medication list and informed on where she could pick the medication up.
--- NOTE | 2021-06-10 13:11 | CARE MANAGER ---
Contacted patient related to discharge follow up. Patient states she just had her dressing change to her wound here at the hospital. She was able to [employer] her antibiotic and has been taking those. She denies any questions or concerns. EDMOND Diamond
== END 2021-06-09 15:46 | disposition home or self-care (01) | DRG 344 ==
LOC: ER 17:49 → 2ND 06-07 04:09
PROVIDERS: Emergency Medicine; Surgery; Admitting Provider Internal Medicine Adolescent Medicine; Emergency Provider Emergency Medicine; PCP Family Medicine; Visit Provider Family Medicine
PROC: 0D9P0ZZ Drainage of Rectum, Open Approach (ICD-10-PCS; principal; 2021-06-07 08:00)
DX: K61.1 Rectal abscess (principal); A41.9 Sepsis, unspecified organism; R65.20 Severe sepsis without septic shock; Z20.822 Contact with and (suspected) exposure to COVID-19; E66.9 Obesity, unspecified; Z68.34 Body mass index [BMI] 34.0-34.9, adult; I10 Essential (primary) hypertension
CPT/HCPCS: 46040; 36415; 80048; 80053; 80202; 81001; 83605; 85007; 85025; 87040; 87070; 87075; 87077; 87186; 87205; 96375; 99285; C9803; J2405; J3370; U0003; U0005

== ENCOUNTER 2021-06-10 12:04 | Outpatient (CLI) | payer BC, SELFPAY | END 2021-06-10 12:40 | disposition home or self-care (01) | LOC: INF 12:04 | PROVIDERS: PCP Family Medicine; Visit Provider Surgery | DX: K61.1 Rectal abscess (principal); Z48.01 Encounter for change or removal of surgical wound dressing | CPT/HCPCS: G0463 ==

== ENCOUNTER → 2021-06-11 11:18 | Outpatient (CLI) | payer BC, SELFPAY | PROVIDERS: PCP Family Medicine; Visit Provider Family Medicine | DX: K61.1 Rectal abscess (principal); Z48.01 Encounter for change or removal of surgical wound dressing | CPT/HCPCS: G0463 ==

== ENCOUNTER 2021-06-12 11:54 | Outpatient (CLI) | payer BC, SELFPAY | END 2021-06-12 12:50 | disposition home or self-care (01) | LOC: INF 11:54 | PROVIDERS: PCP Family Medicine; Visit Provider Surgery | DX: K61.1 Rectal abscess (principal); Z48.01 Encounter for change or removal of surgical wound dressing | CPT/HCPCS: G0463 ==

== ENCOUNTER 2021-06-13 09:43 | Outpatient (CLI) | payer BC, SELFPAY | END 2021-06-13 09:58 | disposition home or self-care (01) | LOC: INF 09:43 | PROVIDERS: PCP Family Medicine; Visit Provider Surgery | DX: K61.1 Rectal abscess (principal); Z48.01 Encounter for change or removal of surgical wound dressing | CPT/HCPCS: G0463 ==

== ENCOUNTER → 2021-06-14 11:16 | Outpatient (CLI) | payer BC, SELFPAY ==
--- NOTE | 2021-06-14 12:46 | PC.NURSE ---
cleansed wound with normal saline solution packed with 1in nugauze. covered with 2x2 and papertape. pt tolerated well.
== END ==
PROVIDERS: PCP Family Medicine; Visit Provider Surgery
DX: K61.1 Rectal abscess (principal); Z48.01 Encounter for change or removal of surgical wound dressing
CPT/HCPCS: G0463

== ENCOUNTER → 2021-06-15 14:43 | Outpatient (CLI) | payer BC, SELFPAY | PROVIDERS: PCP Family Medicine; Visit Provider Surgery | DX: K61.1 Rectal abscess (principal); Z48.01 Encounter for change or removal of surgical wound dressing | CPT/HCPCS: G0463 ==

== ENCOUNTER → 2021-10-15 16:48 | Outpatient (CLI) | payer BC, SELFPAY | PROVIDERS: PCP Family Medicine; Visit Provider Surgery | DX: Z01.812 Encounter for preprocedural laboratory examination (principal); Z20.822 Contact with and (suspected) exposure to COVID-19; Z12.11 Encounter for screening for malignant neoplasm of colon | CPT/HCPCS: C9803; U0003; U0005 ==

== ENCOUNTER 2021-10-17 08:19 | Day surgery (SDC) | payer BC, SELFPAY ==
[2021-10-17 08:34] VITALS: BP 145/79; PULSE 63; RESP 18; TEMP 36.1; O2SAT 100; BMI 29.9
--- NOTE | 2021-10-17 08:53 | P.PN_ITS ---
PFSH PFS Medical History Arthropathy of left ankle Hypertension Surgical History History of ear surgery Family History Other Cancer Heart attack Social History Smoking Status: Never smoker alcohol intake: never substance use type: denies use current occupational status: employed Travel in the last 8 weeks: None household members: none housing: house current occupation: Teacher caffeine: No [facility] Anesthesia Checklist Patient Identification Patient Identification: Arm Band Structural Data Admitted From: Home Planned Operative Procedure/s: colonoscopy Consent for Planned Operative Procedure(s) Verified: Yes Verified Documents: Surgical Consent and History and Physical NPO Status Verified Time NPO: 00:00 Additional verifications Anesthesia Reactions: No Airway Assessment C-Spine Mobility Assessed: Yes TMJ Mobility Assessed: Yes Dentition: Good Dentition Neurological Assessment Level of Consciousness: Awake and Alert Anesthesia Plan Anesthesia Risk discussed: Yes Anesthesia Plan: Verified ASA Class: II Anesthesia Type: MAC
[2021-10-17 08:58] VITALS: O2SAT 97
[2021-10-17 09:23] VITALS: BP 109/65; PULSE 64; RESP 16; TEMP 36.1; O2SAT 98
--- NOTE | 2021-10-17 09:25 | HMH.SCOPE ---
Procedure: Date: 10/17/21 Patient Date of :: 1970 Procedure Performed:: Total colonoscopy to terminal ileum Indications:: Patient is a 50-year-old female. She had been treated for perirectal abscess several months ago. She has never had prior colonoscopy. She was scheduled for initial screening colonoscopy. Performing Provider:: Luis Christopher MD Referring Provider:: Casey Cho MD Sedation:: MAC sedation Procedure:: Patient was taken to endoscopy procedure room. She was positioned in lateral decubitus position. Adequate intravenous sedation was achieved with anesthesia titration of propofol. Variable stiffness Olympus colonoscope was inserted via the anus. It was advanced to the cecum without appreciable difficulty. Colonic preparation was good. Ileocecal valve and appendiceal orifice were clearly identified. Colonoscope was advanced into the terminal ileum which was grossly normal. Colonoscope was slowly withdrawn through the colon with careful surveillance. Retroflexion within the rectum revealed nonbleeding prolapsing internal hemorrhoids. Colonoscope was withdrawn. Findings:: Internal hemorrhoids with anal papilla Recommendations:: Repeat colonoscopy 5 to 10 years Complications:: Not immediately apparent Estimated blood obtained (mL): 0
[2021-10-17 09:33] VITALS: BP 111/62; PULSE 55; RESP 18; TEMP 36.1; O2SAT 99
[2021-10-17 09:43] VITALS: BP 147/67; PULSE 64; RESP 18; TEMP 36.1; O2SAT 99
[2021-10-17 10:02] VITALS: BP 140/74; PULSE 56; RESP 18; TEMP 36.1; O2SAT 99
== END 2021-10-17 10:02 | disposition home or self-care (01) ==
PROVIDERS: PCP Family Medicine; Visit Provider Surgery
PROC: 0DJD8ZZ Inspection of Lower Intestinal Tract, Via Natural or Artificial Opening Endoscopic (ICD-10-PCS; CPT 45378; principal; 2021-10-17 09:30)
DX: Z12.11 Encounter for screening for malignant neoplasm of colon (principal); K64.9 Unspecified hemorrhoids
CPT/HCPCS: 45378

== ENCOUNTER → 2021-12-23 08:25 | Outpatient (CLI) | payer BC, SELFPAY ==
[2021-12-23 17:23] LABS: Basophils # 0.1 K/mm3 (0-0.2); Basophils % 3.1 % (0.1-2.0); Eosinophils # 0.1 K/mm3 (0.0-0.4); Eosinophils % 3.1 % (0.1-12.0); Hematocrit 41.2 % (37.0-47.0); Hemoglobin 13.3 g/dL (12.2-16.2); Lymphocytes # 1.2 K/mm3 (0.7-4.5); Lymphocytes % 28.3 % (10-50); Mean Corpuscular HGB Conc 32.4 g/dL (31.8-35.4); Mean Corpuscular Hemoglobin 29.1 pg (27.0-31.2); Mean Corpuscular Volume 89.7 fl (81-99); Monocytes # 0.7 K/mm3 (0.1-1.0); Monocytes % 15.6 % (1.7-9.3); Neutrophils # 2.1 K/mm3 (1.8-7.8); Neutrophils % 49.9 % (37.0-80.0); Platelet Count 262 K/mm3 (142-424); Red Blood Count 4.59 M/mm3 (4.20-5.40); Red Cell Distribution Width 13.6 % (11.5-17.5); White Blood Count 4.2 K/mm3 (4.8-10.8)
[2021-12-23 17:37] LABS: Alanine Aminotransferase 42 U/L (12-78); Albumin Level 4.6 g/dl (3.5-5.0); Albumin/Globulin Ratio 1.6 (1.1-1.8); Alkaline Phosphatase 119 U/L (38-126); Anion Gap 16.1 mEq/L (5-15); Aspartate Amino Transferase 52 U/L (14-36); Blood Urea Nitrogen 16 mg/dl (7-17); Calcium 9.6 mg/dl (8.4-10.2); Carbon Dioxide 30 mmol/L (22.0-30.0); Chloride 98 mmol/L (98-107); Chol/HDL Ratio 3.8 (1-3.5); Cholesterol 254 mg/dl (140-200); Estimated Glomerular Filt Rate 66 ml/min (>60); GFR (African American) 80 ML/MIN (>60); Globulin 2.8 g/dL (1.3-3.2); Glucose 106 mg/dl (74-100); HDL Cholesterol 66 mg/dl (40-60); Potassium 4.1 mmoL/L (3.5-5.1); Sodium 140 mmol/L (136-145); Total Protein,Serum 7.4 g/dl (6.3-8.2); Triglycerides 98 mg/dl (30-150); VLDL Cholesterol 20 mg/dL (0-40)
[2021-12-23 18:05] LABS: Thyroid Stimulating Hormone 3.09 uIU/mL (0.465-4.68)
[2021-12-23 23:05] LABS: Hemoglobin A1C 5.5 % (4.0-6.0)
== END ==
PROVIDERS: PCP Family Medicine; Visit Provider Family Medicine
DX: R53.83 Other fatigue (principal); I10 Essential (primary) hypertension; E66.9 Obesity, unspecified; Z68.32 Body mass index [BMI] 32.0-32.9, adult
CPT/HCPCS: 80053; 80061; 83036; 84443; 85025

== ENCOUNTER 2023-05-31 10:41 | Outpatient (CLI) | payer BC, SELFPAY | END 2023-05-31 23:59 | LOC: LAB.DROPOF 06-01 10:41 | PROVIDERS: PCP Family Medicine; Visit Provider Family Medicine | DX: T81.40XA Infection following a procedure, unspecified, initial encounter (principal); B95.7 Other staphylococcus as the cause of diseases classified elsewhere | CPT/HCPCS: 87070; 87205 ==